=== PATIENT | female | born 1945 | race Caucasian/White ===

== ENCOUNTER 2016-08-08 15:10 | Outpatient (CLI) ==
[2012-12-18 21:58] VITALS: TEMP 98.6
[2015-02-15 20:08] VITALS: BMI 29.0
== END 2016-08-08 15:11 ==
LOC: AMBL 15:10
PROVIDERS: ATTEND Emergency Medicine
DX: M25.551 Pain in right hip (principal); W19.XXXA Unspecified fall, initial encounter

== ENCOUNTER 2016-10-02 15:53 | Outpatient (CLI) ==
[2012-12-18 21:58] VITALS: TEMP 98.6
[2015-02-15 20:08] VITALS: BMI 29.0
== END 2016-10-02 15:54 | disposition home or self-care (01) ==
LOC: LAB 15:53
DX: C50.919 Malignant neoplasm of unspecified site of unspecified female breast (principal)
CPT/HCPCS: 36415; 86300

== ENCOUNTER 2017-08-14 15:22 | Outpatient (CLI) ==
[2012-12-18 21:58] VITALS: TEMP 98.6
[2015-02-15 20:08] VITALS: BMI 29.0
== END 2017-08-14 15:23 | disposition home or self-care (01) ==
LOC: LAB 15:22
PROVIDERS: ATTEND Specialist
DX: C50.411 Malignant neoplasm of upper-outer quadrant of right female breast (principal); C50.412 Malignant neoplasm of upper-outer quadrant of left female breast
CPT/HCPCS: 36415; 85025

== ENCOUNTER 2017-08-18 13:12 | Outpatient (CLI) | payer OTHER ==
[2012-12-18 21:58] VITALS: TEMP 98.6
[2015-02-15 20:08] VITALS: BMI 29.0
== END 2017-08-18 13:13 | disposition home or self-care (01) ==
LOC: LAB 13:12
PROVIDERS: ATTEND Specialist
DX: C50.411 Malignant neoplasm of upper-outer quadrant of right female breast (principal); C50.412 Malignant neoplasm of upper-outer quadrant of left female breast
CPT/HCPCS: 36415; 85025

== ENCOUNTER 2017-08-21 12:05 | Outpatient (CLI) | payer OTHER ==
[2012-12-18 21:58] VITALS: TEMP 98.6
[2015-02-15 20:08] VITALS: BMI 29.0
== END 2017-08-21 12:06 | disposition home or self-care (01) ==
LOC: LAB 12:05
PROVIDERS: ATTEND Specialist
DX: C50.412 Malignant neoplasm of upper-outer quadrant of left female breast (principal); C50.411 Malignant neoplasm of upper-outer quadrant of right female breast
CPT/HCPCS: 36415; 85025

== ENCOUNTER 2017-08-25 15:58 | Outpatient (CLI) ==
[2012-12-18 21:58] VITALS: TEMP 98.6
[2015-02-15 20:08] VITALS: BMI 29.0
== END 2017-08-25 15:59 | disposition home or self-care (01) ==
LOC: LAB 15:58
PROVIDERS: ATTEND Specialist
DX: C50.411 Malignant neoplasm of upper-outer quadrant of right female breast (principal); C50.412 Malignant neoplasm of upper-outer quadrant of left female breast
CPT/HCPCS: 36415; 85025

== ENCOUNTER 2017-08-28 14:30 | Outpatient (CLI) ==
[2012-12-18 21:58] VITALS: TEMP 98.6
[2015-02-15 20:08] VITALS: BMI 29.0
== END 2017-08-28 14:31 | disposition home or self-care (01) ==
LOC: LAB 14:30
PROVIDERS: ATTEND Specialist
DX: C50.411 Malignant neoplasm of upper-outer quadrant of right female breast (principal); C50.412 Malignant neoplasm of upper-outer quadrant of left female breast
CPT/HCPCS: 36415; 85025

== ENCOUNTER 2017-09-01 12:18 | Outpatient (CLI) ==
[2012-12-18 21:58] VITALS: TEMP 98.6
[2015-02-15 20:08] VITALS: BMI 29.0
== END 2017-09-01 12:19 | disposition home or self-care (01) ==
LOC: LAB 12:18
PROVIDERS: ATTEND Specialist
DX: C50.411 Malignant neoplasm of upper-outer quadrant of right female breast (principal); C50.412 Malignant neoplasm of upper-outer quadrant of left female breast
CPT/HCPCS: 36415; 85025

== ENCOUNTER 2017-09-10 11:22 | Outpatient (CLI) | payer OTHER ==
[2012-12-18 21:58] VITALS: TEMP 98.6
[2015-02-15 20:08] VITALS: BMI 29.0
== END 2017-09-10 11:23 | disposition home or self-care (01) ==
LOC: LAB 11:22
PROVIDERS: ATTEND Specialist
DX: D59.1 Other autoimmune hemolytic anemias (principal); C50.411 Malignant neoplasm of upper-outer quadrant of right female breast; C50.412 Malignant neoplasm of upper-outer quadrant of left female breast
CPT/HCPCS: 36415; 85025; 86850; 86900; 86922

== ENCOUNTER 2017-09-11 08:50 | Outpatient (CLI) ==
[2015-02-15 20:08] VITALS: BMI 29.0
[2017-09-11] MEDS ORDERED: LASIX IVP STA ×4 (09:14→20:45)
[2017-09-11] MEDS ORDERED: TYLENOL PO STA (09:14)
[2017-09-11] MEDS ORDERED: BENADRYL 25 MG in SODIUM CHLORIDE 100 ML IV STA (09:14)
[2017-09-11] MEDS ORDERED: SOLU-MEDROL 125 MG 125 MG in SODIUM CHLORIDE 50 ML IV ONE (09:17)
[2017-09-11] MEDS ORDERED: SOLU-MEDROL 125 MG IVP ONE (10:00)
[2017-09-11 20:01] VITALS: TEMP 98.2
[2017-09-11 20:40] VITALS: BP 137/76
== END 2017-09-11 08:51 | disposition home or self-care (01) ==
LOC: OPMED 08:50
PROVIDERS: ATTEND Specialist
DX: D59.1 Other autoimmune hemolytic anemias (principal)
CPT/HCPCS: 36415; 36430; 85025; 86850; 86900; 86922; 96374; 96376

== ENCOUNTER 2017-09-25 13:05 | Outpatient (CLI) ==
[2012-12-18 21:58] VITALS: TEMP 98.6
[2015-02-15 20:08] VITALS: BMI 29.0
== END 2017-09-25 13:06 | disposition home or self-care (01) ==
LOC: LAB 13:05
PROVIDERS: ATTEND Specialist
DX: C50.412 Malignant neoplasm of upper-outer quadrant of left female breast (principal); C79.51 Secondary malignant neoplasm of bone; D59.1 Other autoimmune hemolytic anemias
CPT/HCPCS: 36415; 82272; 85025; 86850; 86900; 86922

== ENCOUNTER 2017-09-26 09:03 | Outpatient (CLI) ==
[2015-02-15 20:08] VITALS: BMI 29.0
[2017-09-26] MEDS ORDERED: BENADRYL 25 MG in SODIUM CHLORIDE 100 ML IV STA (10:42)
[2017-09-26] MEDS ORDERED: SOLU-MEDROL 125 MG IVP STA (10:42)
[2017-09-26] MEDS ORDERED: TYLENOL PO STA (10:43)
[2017-09-26] MEDS ORDERED: LASIX IVP ONE (10:44)
[2017-09-26 16:26] VITALS: TEMP 98
[2017-09-26 17:58] VITALS: BP 114/64
== END 2017-09-26 09:04 | disposition home or self-care (01) ==
LOC: LAB 09:03 → OPMED 09:04
PROVIDERS: ATTEND Specialist
DX: D59.1 Other autoimmune hemolytic anemias (principal)
CPT/HCPCS: 36415; 36430; 85007; 85025; 86850; 86900; 86922; 96365; 96375

== ENCOUNTER 2017-10-02 12:32 | Outpatient (CLI) | payer OTHER ==
[2012-12-18 21:58] VITALS: TEMP 98.6
[2015-02-15 20:08] VITALS: BMI 29.0
== END 2017-10-02 12:33 | disposition home or self-care (01) ==
LOC: LAB 12:32
PROVIDERS: ATTEND Nurse Practitioner Family
DX: D59.1 Other autoimmune hemolytic anemias (principal)

== ENCOUNTER 2018-01-04 12:58 | Outpatient (CLI) ==
[2012-12-18 21:58] VITALS: TEMP 98.6
[2015-02-15 20:08] VITALS: BMI 29.0
== END 2018-01-04 13:16 | disposition short-term general hospital (02) ==
LOC: AMBL 12:58
PROVIDERS: ATTEND Family Medicine
DX: R53.1 Weakness (principal); R42 Dizziness and giddiness; R00.0 Tachycardia, unspecified; C80.1 Malignant (primary) neoplasm, unspecified

== ENCOUNTER 2018-01-25 20:10 | Emergency (ER) | payer OTHER ==
[2018-01-25 20:26] VITALS: BP 114/64; TEMP 97.7; BMI 24.5
[2018-01-25] MEDS ORDERED: LACTATED RINGERS 1,000 ML IV STA (20:31)
--- NOTE | 2018-01-25 20:34 | ED.PDOC ---
General ED Provider: Dr. CANDACE BABB Chief Complaint: Weakness Stated Complaint: Patient is a 72 year old female who has a history of Breast cancer currently on Hospice. She states she has no pain or shortness of breath but was feeling weak and was coming to the hospital for Respite. Time Seen by Physician: 20:32 Mode of Arrival: Ambulance Information Source: Patient, EMT Exam Limitations: No limitations Primary Care Provider: ANGY GUILLEN Seen Within Last 72 Hours for Same Complaint By: ED Nursing and Triage Documentation Reviewed and Agree: Yes Does patient meet sepsis criteria?: No System Inflammatory Response Syndrome: Pulse >90 BPM, Not Applicable Sepsis Protocol: For patient's 13 years and over: Temp is 96.8 and below OR 101 and greater Pulse >90 BPM Resp >20/minute Acutely Altered Mental Status Are patient's symptoms suggestive of a new infection, such as: -Pneumonia -Skin, Soft Tissue -Endocarditis -UTI -Bone, Joint Infection -Implantable Device -Acute Abdominal Infection -Wound Infection -Meningitis -Blood Stream Catheter Infection -Unknown Review of Systems - Review Of Systems Constitutional: Reports: Weakness Eyes: Reports: No symptoms Ears, Nose, Mouth, Throat: Reports: No symptoms Respiratory: Reports: No symptoms Cardiac: Reports: No symptoms GI: Reports: No symptoms : Reports: No symptoms Musculoskeletal: Reports: No symptoms Skin: Reports: Bruising, Rash Neurological: Reports: No symptoms Endocrine: Reports: No symptoms Hematologic/Lymphatic: Reports: No symptoms All Other Systems: Reviewed and Negative Past Medical History - Past Medical History Previously Healthy: Yes Endocrine: Reports: None Cardiovascular: Reports: None Respiratory: Reports: None Hematological: Reports: None Gastrointestinal: Reports: None Genitourinary: Reports: None Neuro/Psych: Reports: Anxiety, Depression Musculoskeletal: Reports: Arthritis Cancer: Reports: Breast Last Menstrual Period: menopausal - Surgical History General Surgical History: Reports: Hysterectomy, Cholecystectomy, Other (Right mastectomy, cataract surgery ) - Family History Family History: Reports: Unknown - Social History Smoking Status: Never smoker Hx Substance Use: No Alcohol Screening: None - Immunizations Tetanus Shot up to Date: Yes Physical Exam - Physical Exam Appearance: Ill-appearing, Thin Ill-appearing: Severe Pain Distress: None Eyes: Conjunctiva pale Neck: Supple Respiratory: Airway patent, Breath sounds clear, Breath sounds equal, Respirations nonlabored Cardiovascular: No rub, Tachycardia GI/: Soft, Nontender, No masses, Bowel sounds normal, No Organomegaly Musculoskeletal: Normal strength Skin: Pale Neurological: Alert, Oriented Psychiatric: Anxious Critical Care Note - Critical Care Note Total Time (mins): 60 Course - Course Hematology/Chemistry: 01/25/18 21:00 01/25/18 21:00 Orders, Labs, Meds: Lab Review 01/25/18 01/25/18 01/25/18 20:10 21:00 21:00 WBC 2.21 L RBC 1.74 L Hgb 4.8 L* Hct 13.9 L* MCV 79.9 L MCH 27.6 MCHC 34.5 RDW Coeff of Katheryn 14.7 Plt Count 2 L* Immature Gran % (Auto) 0.5 Neut % (Auto) 69.2 Lymph % (Auto) 15.8 Gonzales % (Auto) 14.5 H Eos % (Auto) 0.0 Baso % (Auto) 0.0 Immature Gran # (Auto) 0.0 Neut # (Auto) 1.5 L Lymph # (Auto) 0.4 L Gonzales # (Auto) 0.3 L Eos # (Auto) 0.0 Baso # (Auto) 0.0 Hypochromasia 1+ Anisocytosis 1+ Microcytosis 1+ Sodium 133 L Potassium 3.2 L Chloride 99 Carbon Dioxide 23 Anion Gap 14.2 BUN 25 H Creatinine 0.69 Estimated GFR (MDRD) 84.00 BUN/Creatinine Ratio 36.23 Glucose 125 H Calcium 7.9 L Total Bilirubin 3.3 H AST 9 L ALT 6 L Alkaline Phosphatase 64 Total Protein 5.4 L Albumin 2.7 L Globulin 2.7 Albumin/Globulin Ratio 1.00 Blood Type O NEGATIVE Antibody Screen Negative Crossmatch (AHG) See Detail Orders Category Date Time Status ED IV/MEDIPORT/POWERPORT .ONCE EMERGENCY 01/25/18 20:29 Active BLOOD PRODUCT: PACKED RED BLOOD CELLS [PACKED CELLS] LAB 01/25/18 20:10 Completed Stat CBC W/ AUTO DIFF Stat LAB 01/25/18 21:00 Completed COMPREHENSIVE METABOLIC PANEL Stat LAB 01/25/18 21:00 Completed Platelet Transfusion [PLATELET PHERESIS] Stat LAB 01/25/18 20:10 Completed RBC MORPHOLOGY Stat LAB 01/25/18 21:00 Completed TYPE AND SCREEN Stat LAB 01/25/18 20:10 Completed 0.9 % Sodium Chloride [Saline Flush] MEDS 01/25/18 20:29 Discontinued 1 syr IVF PRN PRN Ringers Lactated Solution [Lactated Ringers] 1,000 ml MEDS 01/25/18 20:31 Discontinued IV BOLUS Medications Discontinued Medications Generic Name Dose Route Start Last Admin Trade Name Pavanq PRN Reason Stop Dose Admin Lactated Ringer's 1,000 mls @ 1,000 mls/hr 01/25/18 20:31 01/25/18 20:54 Lactated Ringers IV 01/25/18 21:30 1,000 mls/hr BOLUS STA Administration Sodium Chloride 1 syr 01/25/18 20:29 Saline Flush IVF PRN PRN To flush IV Vital Signs: Temp Pulse Resp BP Pulse Ox 01/25/18 20:12 97.7 F 113 H 20 114/64 98 Departure - Departure Time of Disposition: 03:00 Disposition: TSF SHORT-TRM HOSP Discharge Problem: Thrombocytopenia, Muscle weakness Anemia Qualifiers: Anemia type: other cause Other causes of anemia: chronic disease, neoplastic Qualified Code(s): D63.0 - Anemia in neoplastic disease Condition: Fair Pt referred to PMD for follow-up: No IPMP verified?: No Allergies/Adverse Reactions: Allergies bacitracin [From Neosporin ([id number])] Adverse Reaction (Verified 01/25/18 22:11) bacitracin zinc [From Neosporin ([id number])] Adverse Reaction (Verified 22:11) neomycin sulfate [From Neosporin ([id number])] Adverse Reaction (Verified 22:11) Penicillins Adverse Reaction (Verified 01/25/18 22:11) polymyxin B [From Neosporin ([id number])] Adverse Reaction (Verified 22:11) Sulfa (Sulfonamide Antibiotics) Adverse Reaction (Verified 01/25/18 22:11) Home Medications: Ambulatory Orders Acetaminophen [Tylenol] 650 mg PO Q4H PRN 01/25/18 Docusate Sodium [Colace] 100 mg PO DAILY 01/25/18 Hydrocodone/Acetaminophen [[place] 7.5-325 Tablet] 7.5 - 325 mg PO Q6H PRN Ondansetron HCl [Zofran] 8 mg PO Q8H PRN 01/25/18
== END 2018-01-26 03:35 | disposition short-term general hospital (02) ==
LOC: ED 20:10
DX: D69.6 Thrombocytopenia, unspecified (principal); M62.81 Muscle weakness (generalized); C50.919 Malignant neoplasm of unspecified site of unspecified female breast; D63.0 Anemia in neoplastic disease; C79.89 Secondary malignant neoplasm of other specified sites; C79.2 Secondary malignant neoplasm of skin; R52 Pain, unspecified; Z79.899 Other long term (current) drug therapy
CPT/HCPCS: 36415; 36430; 80053; 85008; 85025; 86850; 86900; 86922; 96360; 99285